=== PATIENT | female | born 1955 | race Caucasian/White ===

== ENCOUNTER 2019-07-29 18:11 | Emergency (ER) | payer MEDICAID ==
[~2019-07-29] VITALS: Ht 162.6 cm; Wt 61.2 kg
[2019-07-29] MEDS ORDERED: IV NORMAL SALINE 1000 ML BAG IV ONE (18:30)
[2019-07-29 18:45] LABS: BASOPHILS % (AUTO) 0.4 % (0.0-2.0); EOSINOPHILS % (AUTO) 0.7 % (0.0-7.0); HEMATOCRIT 39.7 % (31.2-41.9); HEMOGLOBIN 13.4 g/dL (10.9-14.3); LYMPHOCYTES # (AUTO) 2.5 K/uL (20.0-40.0); LYMPHOCYTES % (AUTO) 37.2 % (20.5-51.5); MEAN CORPUSCULAR HEMOGLOBIN 29.5 uug (24.7-32.8); MEAN CORPUSCULAR HGB CONC 34 g/dL (32.3-35.6); MEAN CORPUSCULAR VOLUME 87.4 fL (75.5-95.3); MONOCYTES # (AUTO) 0.5 K/uL (2.0-10.0); MONOCYTES % (AUTO) 7.8 % (0.0-11.0); NEUTROPHILS # (AUTO) 3.6 K/uL (1.8-8.9); NEUTROPHILS % (AUTO) 53.9 % (38.5-71.5); PLATELET COUNT (AUTO) 239 K/uL (179-408); RED BLOOD CELL COUNT(AUTO) 4.54 MIL/uL (3.63-4.92); WHITE BLOOD COUNT (AUTO) 6.7 K/uL (3.8-11.8)
[2019-07-29 18:50] LABS: CREATININE 0.7 mg/dL (0.6-1.3); POTASSIUM 3.4 mmol/L (3.5-5.1)
[2019-07-29] MEDS ORDERED: ONDANSETRON 4 MG/2 ML VIAL ONE (18:57)
[2019-07-29] MEDS ORDERED: ONDANSETRON 4 MG/2 ML VIAL IV ONE (19:15)
[2019-07-29] MEDS ORDERED: IOHEXOL 350 100 ML INFUS..BTL ONE (19:28)
[2019-07-29] MEDS ORDERED: IV NORMAL SALINE 250 ML IV ONE (19:28)
[2019-07-29] MEDS ORDERED: SWABABLE VALVE TRANSFER SET EA MC ONE (19:28)
[2019-07-29] MEDS ORDERED: LORAZEPAM 2 MG/1 ML VIAL ONE (19:29)
[2019-07-29] MEDS ORDERED: LORAZEPAM 2 MG/1 ML VIAL IV ONE (19:30)
[2019-07-29 19:31] LABS: BILIRUBIN,DIRECT 0.1 mg/dL (0.0-0.2); BILIRUBIN,TOTAL 0.2 mg/dL (0.2-1.0); TOTAL PROTEIN, SERUM 7.6 g/dL (6.4-8.2)
--- NOTE | 2019-07-29 19:36 | NUR ---
Patient transported to CT in stable condition.
--- NOTE | 2019-07-29 19:55 | NUR ---
Patient back in room from CT.
[2019-07-29 20:03] LABS: *BILIRUBIN,URIN NEGATIVE (NEGATIVE); *BLOOD, URINE NEGATIVE (NEGATIVE); *CLARITY,URINE CLEAR (CLEAR); *COLOR,URINE YELLOW (YELLOW); *KETONES,URINE NEGATIVE (NEGATIVE); *UROBILINOGEN,URINE 0.2 E.U./dl (NORMAL); LEUKOCYTE ESTERASE ,URINE NEGATIVE (NEGATIVE); NITRITE, URINE NEGATIVE (NEGATIVE); UGLUCOSE NEGATIVE (NEGATIVE)
--- NOTE | 2019-07-29 22:06 | NUR ---
Patient discharged to home in stable conditon. Written and verbal after care instructions given. Patient verbalizes understanding of instructions. Patient ambulated with stable gait.
[2019-07-29 22:07] VITALS: BP 135/73
== END 2019-07-29 22:08 | disposition home or self-care (01) ==
LOC: ER 18:11
DX: R55 Syncope and collapse (principal); R07.9 Chest pain, unspecified; R10.9 Unspecified abdominal pain; M54.6 Pain in thoracic spine; F41.9 Anxiety disorder, unspecified
CPT/HCPCS: 36415; 71045; 71275; 74174; 80048; 80076; 81001; 83880; 84484 ×2; 85025; 85379; 85730; 87086; 93005; 99284; J2060; J2405; Q9967; 70030-TC; A4663; J7030; J7050

== ENCOUNTER 2019-12-01 10:27 | Emergency (ER) | payer SELFPAY ==
[~2019-12-01] VITALS: Ht 162.6 cm; Wt 63.5 kg
--- NOTE | 2019-12-01 10:35 | NUR ---
pt bib ems co back pain. pt has a history of back pain but today she had to carry her dog going up the stairs, because the elevator was not working. now the back pain is not controlled by her routine home meds.
[2019-12-01] MEDS ORDERED: ONDANSETRON 4 MG/2 ML VIAL IM ONE (10:45)
[2019-12-01] MEDS ORDERED: HYDROMORPHONE 1 MG/1 ML DISP.SYRIN IM ONE (10:45)
[2019-12-01] MEDS ORDERED: ONDANSETRON 4 MG/2 ML VIAL ONE (10:46)
[2019-12-01] MEDS ORDERED: HYDROMORPHONE 2 MG/1 ML DISP.SYRIN ONE (10:46)
--- NOTE | 2019-12-01 12:49 | NUR ---
Patient discharged to home in stable conditon. Written and verbal after care instructions given. Patient verbalizes understanding of instructions.pt walks i nsteady gait. pt walked to her ride waiting outside for her.
[2019-12-01 12:50] VITALS: BP 131/74
== END 2019-12-01 12:52 | disposition home or self-care (01) ==
LOC: ER 10:27
DX: M54.5 Low back pain (principal); F41.9 Anxiety disorder, unspecified
CPT/HCPCS: 96372 ×2; 99283; J1170; J2405; A4663

== ENCOUNTER 2021-01-26 08:16 | Emergency (ER) | payer SELFPAY ==
[~2021-01-26] VITALS: Ht 162.6 cm; Wt 61.2 kg
[2021-01-26] MEDS: KETOROLAC TROMETHAMINE 30 MG INJ IM ONE (08:42)
[2021-01-26] MEDS ORDERED: KETOROLAC TROMETHAMINE 30 MG INJ ONE (08:43)
[2021-01-26] MEDS: KETOROLAC TROMETHAMINE 30 MG INJ IVP ONE (08:44)
[2021-01-26 08:49] LABS: HEMOGLOBIN 13.7 g/dL (10.9-14.3); RED BLOOD CELL COUNT(AUTO) 4.59 MIL/uL (3.63-4.92)
[2021-01-26 08:51] LABS: *BILIRUBIN,URIN NEGATIVE (NEGATIVE); *BLOOD, URINE NEGATIVE (NEGATIVE); *CLARITY,URINE SLIGHTLY CLOUDY (CLEAR); *COLOR,URINE YELLOW (YELLOW); *KETONES,URINE NEGATIVE (NEGATIVE); *UROBILINOGEN,URINE 0.2 E.U./dl (NORMAL); LEUKOCYTE ESTERASE ,URINE NEGATIVE (NEGATIVE); NITRITE, URINE NEGATIVE (NEGATIVE); PH,URINE 5.5 (5.0-8.0); UGLUCOSE NEGATIVE (NEGATIVE)
[2021-01-26 09:05] LABS: BILIRUBIN,DIRECT 0.1 mg/dL (0.0-0.2); BILIRUBIN,TOTAL 0.4 mg/dL (0.2-1.0); CREATININE 0.8 mg/dL (0.6-1.3); POTASSIUM 4.1 mmol/L (3.5-5.1); TOTAL PROTEIN, SERUM 7.8 g/dL (6.4-8.2)
[2021-01-26 09:10] LABS: BASOPHILS % (AUTO) 0.4 % (0.0-2.0); EOSINOPHILS # (AUTO) 0.1 K/uL (0.0-0.7); EOSINOPHILS % (AUTO) 1.4 % (0.0-7.0); HEMATOCRIT 40.5 % (31.2-41.9); LYMPHOCYTES # (AUTO) 2.3 K/uL (20.0-40.0); LYMPHOCYTES % (AUTO) 40.8 % (20.5-51.5); MEAN CORPUSCULAR HEMOGLOBIN 29.9 uug (24.7-32.8); MEAN CORPUSCULAR HGB CONC 34 g/dL (32.3-35.6); MEAN CORPUSCULAR VOLUME 88.2 fL (75.5-95.3); MONOCYTES # (AUTO) 0.6 K/uL (2.0-10.0); MONOCYTES % (AUTO) 10.8 % (0.0-11.0); NEUTROPHILS # (AUTO) 2.7 K/uL (1.8-8.9); NEUTROPHILS % (AUTO) 46.6 % (38.5-71.5); PLATELET COUNT (AUTO) 234 K/uL (179-408); WHITE BLOOD COUNT (AUTO) 5.7 K/uL (3.8-11.8)
[2021-01-26] MEDS: MORPHINE SULFATE 2 MG/1 ML DISP.SYRIN IV ONE (09:56)
[2021-01-26] MEDS ORDERED: MORPHINE SULFATE 2 MG/1 ML DISP.SYRIN ONE (09:58)
[2021-01-26] MEDS ORDERED: IBUP-1953 PO (10:05)
[2021-01-26 10:07] LABS: MUCUS,URINE FEW /LPF (0-FEW); SQUAMOUS EPITHELIAL CELL,UR FEW /HPF (NONE SEEN)
[2021-01-26 10:11] LABS: CALCIUM PHOSPHATE CRYSTALS,UR RARE /HPF (NONE SEEN); WBC,URINE 0-3 /HPF (0-3)
[2021-01-26 10:23] VITALS: BP 141/81
--- NOTE | 2021-01-26 10:23 | NUR ---
Patient discharged to home in stable condition. Written and verbal after care instructions given. Patient verbalizes understanding of instructions. Stressed follow up or return to ER for worsening s/s.pt walks in steady gait. pt says that she is not driving.
== END 2021-01-26 10:24 | disposition home or self-care (01) ==
LOC: ER 08:16
DX: M54.5 Low back pain (principal); G89.29 Other chronic pain; M51.46 Schmorl's nodes, lumbar region
CPT/HCPCS: 36415; 72131; 80048; 80076; 81001; 83690; 85025; 96374; 96375; 99284; J1885; J2270; A4663

== ENCOUNTER → 2021-07-15 10:45 | Emergency (ER) | payer SELFPAY ==
[~2021-07-15 10:45] MED LIST: IBUP-1953 PO
--- NOTE | 2021-07-15 10:45 | NUR ---
I attempted to traige pt. I went out to the waiting room, I attempted to screen the pt due to COVID per hospital protocol. Pt refused to answer any questions, became upset and agitated, was screaming at me and walked out of the ER.
== END | disposition left against medical advice (07) ==
LOC: ER 10:45
DX: Z53.21 Procedure and treatment not carried out due to patient leaving prior to being seen by health care provider (principal)

== ENCOUNTER 2023-01-31 12:27 | Emergency (ER) | payer MEDICAID ==
[~2023-01-31] VITALS: Ht 167.6 cm; Wt 61.2 kg
[2023-01-31] MEDS ORDERED: LORAZEPAM 2 MG/1 ML VIAL ONE (12:35)
[2023-01-31] MEDS ORDERED: LORAZEPAM 2 MG/1 ML VIAL IM ONE (12:45)
[2023-01-31 12:54] VITALS: BP 128/87
== END 2023-01-31 12:55 | disposition home or self-care (01) ==
LOC: ER 12:27
DX: F41.9 Anxiety disorder, unspecified (principal); M54.50 Low back pain, unspecified; Z79.1 Long term (current) use of non-steroidal anti-inflammatories (NSAID)
CPT/HCPCS: A4663; J2060

== ENCOUNTER 2023-07-01 07:14 | Emergency (ER) | payer MEDICAID ==
[~2023-07-01] VITALS: Ht 167.6 cm; Wt 61.2 kg
[2023-07-01] MEDS ORDERED: PANTOPRAZOLE SODIUM 40 MG VIAL IV ONE (07:30)
[2023-07-01 07:44] LABS: BASOPHILS % (AUTO) 0.5 % (0.0-2.0); EOSINOPHILS # (AUTO) 0.1 K/uL (0.0-0.7); EOSINOPHILS % (AUTO) 2.9 % (0.0-7.0); HEMATOCRIT 40.6 % (31.2-41.9); HEMOGLOBIN 13.9 g/dL (10.9-14.3); LYMPHOCYTES # (AUTO) 1.6 K/uL (0.8-4.8); LYMPHOCYTES % (AUTO) 42.7 % (20.5-51.5); MEAN CORPUSCULAR HEMOGLOBIN 30.4 uug (24.7-32.8); MEAN CORPUSCULAR HGB CONC 34 g/dL (32.3-35.6); MEAN CORPUSCULAR VOLUME 88.8 fL (75.5-95.3); MONOCYTES # (AUTO) 0.5 K/uL (0.1-1.30); MONOCYTES % (AUTO) 12.6 % (0.0-11.0); NEUTROPHILS # (AUTO) 1.6 K/uL (1.8-8.9); NEUTROPHILS % (AUTO) 41.3 % (38.5-71.5); PLATELET COUNT (AUTO) 223 K/uL (179-408); RED BLOOD CELL COUNT(AUTO) 4.57 MIL/uL (3.63-4.92); RED CELL DISTRIBUTION WIDTH 12.8 % (12.3-17.7); WHITE BLOOD COUNT (AUTO) 3.9 K/uL (3.8-11.8)
[2023-07-01] MEDS ORDERED: DIAZEPAM 10 MG/2 ML DISP.SYRIN IV ONE (07:45)
[2023-07-01 07:49] LABS: *BILIRUBIN,URIN NEGATIVE (NEGATIVE); *BLOOD, URINE NEGATIVE (NEGATIVE); *CLARITY,URINE CLEAR (CLEAR); *COLOR,URINE YELLOW (YELLOW); *KETONES,URINE NEGATIVE (NEGATIVE); *PROTEIN,URINE NEGATIVE (NEGATIVE); *UROBILINOGEN,URINE 0.2 E.U./dl (NORMAL); LEUKOCYTE ESTERASE ,URINE NEGATIVE (NEGATIVE); NITRITE, URINE NEGATIVE (NEGATIVE); UGLUCOSE NEGATIVE (NEGATIVE)
[2023-07-01 07:51] LABS: DIFFERENTIAL COMMENT 1
[2023-07-01 07:53] LABS: CALCIUM 8.8 mg/dL (8.5-10.1); CREATININE 0.8 mg/dL (0.6-1.3); POTASSIUM 4.3 mmol/L (3.5-5.1)
[2023-07-01 07:59] LABS: ALBUMIN 3.9 g/dL (3.4-5.0); BILIRUBIN,DIRECT 0.1 mg/dL (0.0-0.2); BILIRUBIN,TOTAL 0.5 mg/dL (0.2-1.0); TOTAL PROTEIN, SERUM 7.9 g/dL (6.4-8.2)
[2023-07-01] MEDS ORDERED: DIAZEPAM 10 MG/2 ML DISP.SYRIN ONE (08:12)
[2023-07-01] MEDS ORDERED: PANTOPRAZOLE SODIUM 40 MG VIAL ONE (08:12)
[2023-07-01] MEDS ORDERED: KETOROLAC TROMETHAMINE 30 MG INJ IVP ONE ×2 (10:30→10:45)
[2023-07-01] MEDS ORDERED: NAPR-1192 PO (10:32)
[2023-07-01] MEDS ORDERED: POLY119P2 PO (10:32)
[2023-07-01 11:14] VITALS: BP 130/70; TEMP 98; O2SAT 99
== END 2023-07-01 11:14 | disposition home or self-care (01) ==
LOC: ER 07:16
DX: R10.84 Generalized abdominal pain (principal); M54.50 Low back pain, unspecified; Z79.1 Long term (current) use of non-steroidal anti-inflammatories (NSAID); Z79.899 Other long term (current) drug therapy
CPT/HCPCS: 99285; 74176; 96374; 96375; 80076; 80048; 81003; 83690; 85025; 36415; 93005; J3360; C9113; A4663

== ENCOUNTER 2023-10-17 06:33 | Emergency (ER) | payer MEDICAID ==
[~2023-10-17] VITALS: Ht 162.6 cm; Wt 61.2 kg
[~2023-10-17 06:33] MED LIST changes: +NAPR-1192 PO; +POLY119P2 PO
[2023-10-17] MEDS ORDERED: IV NORMAL SALINE 1000 ML BAG IV ONE (07:00)
[2023-10-17] MEDS ORDERED: MECLIZINE HCL 25 MG TABLET PO ONE (07:45)
[2023-10-17] MEDS ORDERED: ONDANSETRON 4 MG/2 ML VIAL IV ONE (07:45)
[2023-10-17] MEDS ORDERED: LORAZEPAM 2 MG/1 ML VIAL IV ONE (07:45)
[2023-10-17 07:46] LABS: BASOPHILS % (AUTO) 0.5 % (0.0-2.0); EOSINOPHILS # (AUTO) 0.1 K/uL (0.0-0.7); EOSINOPHILS % (AUTO) 1.9 % (0.0-7.0); HEMATOCRIT 40.3 % (31.2-41.9); HEMOGLOBIN 13.7 g/dL (10.9-14.3); LYMPHOCYTES # (AUTO) 1.4 K/uL (0.8-4.8); LYMPHOCYTES % (AUTO) 27.1 % (20.5-51.5); MEAN CORPUSCULAR HGB CONC 34 g/dL (32.3-35.6); MEAN CORPUSCULAR VOLUME 88.2 fL (75.5-95.3); MONOCYTES # (AUTO) 0.4 K/uL (0.1-1.30); MONOCYTES % (AUTO) 7.1 % (0.0-11.0); NEUTROPHILS # (AUTO) 3.2 K/uL (1.8-8.9); NEUTROPHILS % (AUTO) 63.4 % (38.5-71.5); PLATELET COUNT (AUTO) 223 K/uL (179-408); RED BLOOD CELL COUNT(AUTO) 4.57 MIL/uL (3.63-4.92); RED CELL DISTRIBUTION WIDTH 12.8 % (12.3-17.7); WHITE BLOOD COUNT (AUTO) 5.1 K/uL (3.8-11.8)
[2023-10-17] MEDS ORDERED: IV NORMAL SALINE 250 ML IV ONE (08:00)
[2023-10-17] MEDS ORDERED: SWABABLE VALVE TRANSFER SET EA MC ONE (08:00)
[2023-10-17] MEDS ORDERED: IOHEXOL 350 100 ML INFUS..BTL ONE (08:00)
[2023-10-17 08:02] LABS: DIFFERENTIAL COMMENT 1
[2023-10-17 08:04] LABS: THYROID STIMULATING HORMONE 1.486 mIU/mL (0.358-3.740)
[2023-10-17] MEDS ORDERED: MECLIZINE HCL 25 MG TABLET ONE (08:05)
[2023-10-17] MEDS ORDERED: ONDANSETRON 4 MG/2 ML VIAL ONE (08:05)
[2023-10-17] MEDS ORDERED: LORAZEPAM 2 MG/1 ML VIAL ONE (08:07)
[2023-10-17 08:35] LABS: *BILIRUBIN,URIN NEGATIVE (NEGATIVE); *BLOOD, URINE NEGATIVE (NEGATIVE); *CLARITY,URINE CLEAR (CLEAR); *COLOR,URINE YELLOW (YELLOW); *KETONES,URINE NEGATIVE (NEGATIVE); *PROTEIN,URINE NEGATIVE (NEGATIVE); *UROBILINOGEN,URINE 0.2 E.U./dl (NORMAL); LEUKOCYTE ESTERASE ,URINE 1+ (NEGATIVE); NITRITE, URINE NEGATIVE (NEGATIVE); PH,URINE 6.5 (5.0-8.0); UGLUCOSE NEGATIVE (NEGATIVE)
[2023-10-17 08:36] LABS: CARBON DIOXIDE 23 mmol/L (21-32); CHLORIDE 106 mmol/L (98-107); CREATININE 0.7 mg/dL (0.6-1.3); GLUCOSE 115 mg/dL (74-106); POTASSIUM 3.9 mmol/L (3.5-5.1); SODIUM SERUM 140 mmol/L (136-145); UREA NITROGEN, BLOOD 21 mg/dL (7-18)
[2023-10-17 08:38] LABS: ALKALINE PHOSPHATASE 71 U/L (50-136); BILIRUBIN,DIRECT < 0.1 mg/dL (0.0-0.2); BILIRUBIN,TOTAL 0.3 mg/dL (0.2-1.0)
[2023-10-17 08:39] LABS: ALANINE AMINOTRANSFERASE 90 U/L (14-59); ALBUMIN 3.8 g/dL (3.4-5.0); ASPARTATE AMINOTRANSFERASE 37 U/L (15-37); TOTAL PROTEIN, SERUM 7.6 g/dL (6.4-8.2)
[2023-10-17 08:53] LABS: CALCIUM 9.5 mg/dL (8.5-10.1)
[2023-10-17 09:37] LABS: BACTERIA,URINE FEW /HPF (NONE SEEN); CALCIUM OXALATE CRYSTALS,UR MANY /HPF (NONE SEEN); RBC,URINE 0-3 /HPF (0-3); SQUAMOUS EPITHELIAL CELL,UR FEW /HPF (NONE SEEN)
[2023-10-17] MEDS ORDERED: KETOROLAC TROMETHAMINE 15 MG INJ IVP ONE (10:30)
[2023-10-17] MEDS ORDERED: ACETAMINOPHEN 325 MG TABLET PO ONE (10:30)
[2023-10-17] MEDS ORDERED: ONDA4TAB5 PO (10:31)
[2023-10-17] MEDS ORDERED: MECL-225 PO (10:31)
[2023-10-17 10:41] VITALS: BP 129/61; O2SAT 98
== END 2023-10-17 10:42 | disposition home or self-care (01) ==
LOC: ER 06:35
DX: R42 Dizziness and giddiness (principal); F41.9 Anxiety disorder, unspecified; R11.0 Nausea; I10 Essential (primary) hypertension; R07.89 Other chest pain; G89.29 Other chronic pain; M54.9 Dorsalgia, unspecified; Z79.899 Other long term (current) drug therapy; Z88.1 Allergy status to other antibiotic agents; Z88.8 Allergy status to other drugs, medicaments and biological substances
CPT/HCPCS: 99285; 70496; 96374; 71045; 96361; 96375; 80076; 80048; 81001; 82962; 83690; 84443; 85025; 84484; 36415; 93005; 70498; J2060; J2405; Q9967; J7040; A4606; A4663; J8597

== ENCOUNTER 2023-10-17 17:06 | Emergency (ER) | payer MEDICAID ==
[~2023-10-17] VITALS: Ht 162.6 cm; Wt 61.2 kg
[~2023-10-17 17:06] MED LIST changes: +MECL-225 PO; +ONDA4TAB5 PO
[2023-10-17 17:31] VITALS: O2SAT 98
== END 2023-10-17 17:20 | disposition home or self-care (01) ==
LOC: ER 17:07
DX: F41.9 Anxiety disorder, unspecified (principal); R42 Dizziness and giddiness; I10 Essential (primary) hypertension; Z79.899 Other long term (current) drug therapy; Z60.2 Problems related to living alone
CPT/HCPCS: A4606; A4663

== ENCOUNTER 2024-06-15 14:43 | Emergency (ER) | payer BC ==
[~2024-06-15] VITALS: Ht 162.6 cm; Wt 63.5 kg
[2024-06-15] MEDS ORDERED: MORPHINE SULFATE 2 MG/1 ML DISP.SYRIN ONE (15:16)
[2024-06-15] MEDS ORDERED: ONDANSETRON 4 MG/2 ML VIAL ONE (15:16)
[2024-06-15] MEDS: MORPHINE SULFATE 2 MG/1 ML DISP.SYRIN IV ONE (15:20)
[2024-06-15] MEDS: IV NORMAL SALINE 1000 ML BAG IV ONE (15:20)
[2024-06-15] MEDS: ONDANSETRON 4 MG/2 ML VIAL IV ONE (15:20)
[2024-06-15 15:23] LABS: BASOPHILS % (AUTO) 0.4 % (0.0-2.0); EOSINOPHILS % (AUTO) 0.1 % (0.0-7.0); HEMATOCRIT 40.3 % (31.2-41.9); HEMOGLOBIN 13.6 g/dL (10.9-14.3); MEAN CORPUSCULAR HEMOGLOBIN 29.6 uug (24.7-32.8); MEAN CORPUSCULAR HGB CONC 34 g/dL (32.3-35.6); MEAN CORPUSCULAR VOLUME 87.6 fL (75.5-95.3); MONOCYTES # (AUTO) 0.3 K/uL (0.1-1.30); NEUTROPHILS # (AUTO) 5.6 K/uL (1.8-8.9); NEUTROPHILS % (AUTO) 80.5 % (38.5-71.5); PLATELET COUNT (AUTO) 229 K/uL (179-408); RED CELL DISTRIBUTION WIDTH 12.7 % (12.3-17.7); WHITE BLOOD COUNT (AUTO) 6.9 K/uL (3.8-11.8)
[2024-06-15 15:35] LABS: DIFFERENTIAL COMMENT 1
[2024-06-15 16:03] LABS: CALCIUM 9.3 mg/dL (8.5-10.1); CARBON DIOXIDE 21 mmol/L (21-32); CHLORIDE 101 mmol/L (98-107); CREATININE 0.7 mg/dL (0.6-1.3); GLUCOSE 92 mg/dL (74-106); SODIUM SERUM 137 mmol/L (136-145); UREA NITROGEN, BLOOD 11 mg/dL (7-18)
[2024-06-15 16:12] LABS: ALANINE AMINOTRANSFERASE 51 U/L (14-59); ALKALINE PHOSPHATASE 72 U/L (50-136); ASPARTATE AMINOTRANSFERASE 39 U/L (15-37); BILIRUBIN,DIRECT 0.2 mg/dL (0.0-0.2); BILIRUBIN,TOTAL 0.8 mg/dL (0.2-1.0); TOTAL PROTEIN, SERUM 7.8 g/dL (6.4-8.2)
[2024-06-15 16:24] LABS: *BILIRUBIN,URIN NEGATIVE (NEGATIVE); *BLOOD, URINE NEGATIVE (NEGATIVE); *CLARITY,URINE CLEAR (CLEAR); *COLOR,URINE YELLOW (YELLOW); *KETONES,URINE 2+ (NEGATIVE); *PROTEIN,URINE NEGATIVE (NEGATIVE); *UROBILINOGEN,URINE 0.2 E.U./dl (NORMAL); LEUKOCYTE ESTERASE ,URINE NEGATIVE (NEGATIVE); NITRITE, URINE NEGATIVE (NEGATIVE); UGLUCOSE NEGATIVE (NEGATIVE)
[2024-06-15] MEDS ORDERED: PANTOPRAZOLE SODIUM 40 MG VIAL ONE (16:47)
[2024-06-15] MEDS: PANTOPRAZOLE SODIUM IV 40 MG in IV DEXTROSE 5% 100 ML IV ONE (16:47)
[2024-06-15] MEDS ORDERED: POTASSIUM CHLORIDE 20 MEQ TAB.PRT.SR ONE (17:16)
[2024-06-15] MEDS: POTASSIUM CHLORIDE 20 MEQ TAB.PRT.SR PO ONE (17:16)
[2024-06-15] MEDS ORDERED: ONDA4TAB5 PO (17:29)
[2024-06-15] MEDS ORDERED: POTA-10 PO (17:29)
[2024-06-15] MEDS ORDERED: PANT20TA2 PO (17:29)
[2024-06-15 17:54] VITALS: BP 131/87; O2SAT 98
[2024-06-15 22:38] LABS: BACTERIA,URINE NONE SEEN /HPF (NONE SEEN); RBC,URINE NONE SEEN /HPF (0-3); SQUAMOUS EPITHELIAL CELL,UR FEW /HPF (NONE SEEN); WBC,URINE 0-3 /HPF (0-3)
== END 2024-06-15 17:56 | disposition home or self-care (01) ==
LOC: ER 14:44
DX: K29.00 Acute gastritis without bleeding (principal); R53.1 Weakness; F32.A Depression, unspecified; Z79.1 Long term (current) use of non-steroidal anti-inflammatories (NSAID); Z79.899 Other long term (current) drug therapy; Z20.822 Contact with and (suspected) exposure to COVID-19
CPT/HCPCS: 99285; 74176; 96365; 96375; 71045; 96361; 87426; 80076; 80048; 81001; 83690; 85025; 84145; 85730; 87040 ×2; 84484; 36415; 93005; 83605; 87086; J2405; J2470; J2270; J7040